=== PATIENT | female | born 1965 | race Caucasian/White ===

== ENCOUNTER 2017-11-19 12:35 | Emergency (ER) | payer OTHER ==
[2017-11-19 13:30] LABS: Appearance,Urine Clear (Clear); Bilirubin,Urine Negative (Negative); Blood,Urine Negative (Negative); Color,Urine Colorless; Glucose,Urine (UA) Negative (Negative); Ketones,Urine Negative (Negative); Leukocyte Esterase,Urine Negative (Negative); Nitrite,Urine Negative (Negative); PH, Urine 6.5 (5.0-8.0); Protein,Urine Negative (Negative); Specific Gravity,Urine 1.004 (1.001-1.035); Urobilinogen,Urine <2.0 mg/dL (<2.0)
[2017-11-19 14:51] LABS: Basophils # (A) 0.1 k/uL (0-0.2); Basophils % (A) 1 %; Eosinophils # (A) 0.6 k/uL (0-0.7); Eosinophils % (A) 5 %; HCT 47.1 % (34.0-46.0); HGB 15.7 gm/dL (11.4-16.0); Lymphocytes # (A) 3.1 k/uL (1.0-4.8); Lymphocytes % (A) 26 %; MCH 28.8 pg (25.0-35.0); MCHC 33.4 g/dL (31.0-37.0); MCV 86.4 fL (80.0-100.0); Mean Platelet Volume 6.9; Monocytes # (A) 0.5 k/uL (0-1.0); Monocytes % (A) 4 %; Neutrophils # (A) 7.2 k/uL (1.3-7.7); Neutrophils % (A) 63 %; Platelet Count 381 k/uL (150-450); RBC 5.45 m/uL (3.80-5.40); WBC 11.6 k/uL (3.8-10.6)
[2017-11-19 15:02] LABS: ALT 26 U/L (9-52); AST 24 U/L (14-36); Albumin 4.3 g/dL (3.5-5.0); Alkaline Phosphatase 100 U/L (38-126); Amylase 62 U/L (30-110); Anion Gap 11 mmol/L; Blood Urea Nitrogen 15 mg/dL (7-17); Calcium 9.9 mg/dL (8.4-10.2); Carbon Dioxide 27 mmol/L (22-30); Chloride 104 mmol/L (98-107); Glucose 94 mg/dL (74-99); Lipase 91 U/L (23-300); Potassium 4.3 mmol/L (3.5-5.1); Sodium 142 mmol/L (137-145); Total Bilirubin 1.1 mg/dL (0.2-1.3); Total Protein 7.3 g/dL (6.3-8.2)
--- NOTE | 2017-11-19 15:10 | XR ---
EXAMINATION TYPE: XR KUB DATE OF EXAM: 11/19/2017 3:01 PM CLINICAL HISTORY: Right lower quadrant and right flank pain. TECHNIQUE: Two Upright KUB images of the abdomen are obtained. COMPARISON: Acute abdominal series April 22, 2009. FINDINGS: Scattered gas is seen in non-distended stomach and small bowel loops. Gas and fecal materia l is seen in non-distended colon. Cholecystectomy clips are present. Visualized lung bases are clear. Visualized osseous structures are intact. IMPRESSION: Overall nonobstructive bowel gas pattern.
[2017-11-19] MEDS ORDERED: RX INFO: IV CONTRAST WAS GIVEN 1 EACH MISC MISCELLANE PRN (15:58)
[2017-11-19] MEDS ORDERED: KETOROLAC 30 MG/ML 1 ML VIAL IVP STA (15:58)
[2017-11-19] MEDS ORDERED: ONDANSETRON 4 MG/2 ML VIAL IVP STA (15:58)
[2017-11-19] MEDS ORDERED: SODIUM CHLORIDE 0.9% 500 ML IV STA (15:58)
[2017-11-19] MEDS ORDERED: ACETAMINOPHEN IV (For NPO) 1,000 MG in EMPTY BAG 1 BAG IVPB STA (15:58)
--- NOTE | 2017-11-19 16:31 | ED ---
General Adult HPI - General Chief complaint: Abdominal Pain Stated complaint: Abd pain Time Seen by Provider: 11/19/17 15:17 Source: patient Mode of arrival: ambulatory Limitations: no limitations - Related Data Home Medications Medication Instructions Recorded Confirmed Ibuprofen [Motrin] 800 mg PO TID PRN 11/19/17 11/19/17 Lisinopril-Hctz 10-12.5 mg 1 tab PO DAILY 11/19/17 11/19/17 [Zestoretic 10-12.5] Meclizine HCl 12.5 mg PO DAILY PRN 11/19/17 11/19/17 Simvastatin [Zocor] 20 mg PO HS 11/19/17 11/19/17 Allergies Allergy/AdvReac Type Severity Reaction Status Date / Time amoxicillin Allergy Rash/Hives Verified 11/19/17 15:37 Penicillins Allergy Rash/Hives Verified 11/19/17 15:37 atorvastatin [From Lipitor] AdvReac NUMBNESS Verified 11/19/17 15:37 Review of Systems ROS Statement: Those systems with pertinent positive or pertinent negative responses have been documented in the HPI. ROS Other: All systems not noted in ROS Statement are negative. Past Medical History Past Medical History: Hyperlipidemia, Hypertension Additional Past Medical History / Comment(s): vertigo History of Any Multi-Drug Resistant Organisms: C-DIFF Date of last positivie culture/infection: c-diff 2012 Past Surgical History: Cholecystectomy Past Psychological History: No Psychological Hx Reported Smoking Status: Never smoker Past Alcohol Use History: Occasional Past Drug Use History: None Reported General Exam Limitations: no limitations General appearance: alert, in no apparent distress Head exam: Present: atraumatic, normocephalic, normal inspection Eye exam: Present: normal appearance, PERRL, EOMI. Absent: scleral icterus, conjunctival injection, periorbital swelling ENT exam: Present: normal exam, mucous membranes moist Neck exam: Present: normal inspection. Absent: tenderness, meningismus, lymphadenopathy Respiratory exam: Present: normal lung sounds bilaterally. Absent: respiratory distress, wheezes, rales, rhonchi, stridor Cardiovascular Exam: Present: regular rate, normal rhythm, normal heart sounds. Absent: systolic murmur, diastolic murmur, rubs, gallop, clicks GI/Abdominal exam: Present: soft, normal bowel sounds. Absent: distended, tenderness, guarding, rebound, rigid Extremities exam: Present: normal inspection, full ROM, normal capillary refill. Absent: tenderness, pedal edema, joint swelling, calf tenderness Back exam: Present: normal inspection Neurological exam: Present: alert, oriented X3, CN II-XII intact Psychiatric exam: Present: normal affect, normal mood Skin exam: Present: warm, dry, intact, normal color. Absent: rash Course Vital Signs 11/19/17 11/19/17 12:46 15:59 Temperature 97.4 F L Pulse Rate 91 97 Respiratory 18 18 Rate Blood Pressure 175/103 163/94 O2 Sat by Pulse 99 98 Oximetry Medical Decision Making - Lab Data Result diagrams: 11/19/17 14:43 11/19/17 14:43 Lab Results 11/19/17 11/19/17 11/19/17 Range/Units 13:00 14:43 14:43 WBC 11.6 H (3.8-10.6) k/uL RBC 5.45 H (3.80-5.40) m/uL Hgb 15.7 (11.4-16.0) gm/dL Hct 47.1 H (34.0-46.0) % MCV 86.4 (80.0-100.0) fL MCH 28.8 (25.0-35.0) pg MCHC 33.4 (31.0-37.0) g/dL RDW 13.0 (11.5-15.5) % Plt Count 381 (150-450) k/uL Neutrophils % 63 % Lymphocytes % 26 % Monocytes % 4 % Eosinophils % 5 % Basophils % 1 % Neutrophils # 7.2 (1.3-7.7) k/uL Lymphocytes # 3.1 (1.0-4.8) k/uL Monocytes # 0.5 (0-1.0) k/uL Eosinophils # 0.6 (0-0.7) k/uL Basophils # 0.1 (0-0.2) k/uL Sodium 142 (137-145) mmol/L Potassium 4.3 (3.5-5.1) mmol/L Chloride 104 (98-107) mmol/L Carbon Dioxide 27 (22-30) mmol/L Anion Gap 11 mmol/L BUN 15 (7-17) mg/dL Creatinine 0.60 (0.52-1.04) mg/dL Est GFR (CKD-EPI)AfAm >90 (>60 ml/min/1.73 sqM) Est GFR (CKD-EPI)NonAf >90 (>60 ml/min/1.73 sqM) Glucose 94 (74-99) mg/dL Calcium 9.9 (8.4-10.2) mg/dL Total Bilirubin 1.1 (0.2-1.3) mg/dL AST 24 (14-36) U/L ALT 26 (9-52) U/L Alkaline Phosphatase 100 (38-126) U/L Total Protein 7.3 (6.3-8.2) g/dL Albumin 4.3 (3.5-5.0) g/dL Amylase 62 (30-110) U/L Lipase 91 (23-300) U/L Urine Color Colorless Urine Appearance Clear (Clear) Urine pH 6.5 (5.0-8.0) Ur Specific [place] 1.004 (1.001-1.035) Urine Protein Negative (Negative) Urine Glucose (UA) Negative (Negative) Urine Ketones Negative (Negative) Urine Blood Negative (Negative) Urine Nitrite Negative (Negative) Urine Bilirubin Negative (Negative) Urine Urobilinogen <2.0 (<2.0) mg/dL Ur Leukocyte Esterase Negative (Negative) Disposition Clinical Impression: Abdominal pain Disposition: HOME SELF-CARE Condition: Good Instructions: Abdominal Pain (ED) Referrals: Jaspal Benoit MD [Primary Care Provider] - 1-2 days
--- NOTE | 2017-11-19 17:10 | CT ---
EXAMINATION TYPE: CT abdomen pelvis w con DATE OF EXAM: 11/19/2017 HISTORY: Right lower quadrant pain for [address] DLP: 1559.3mGycm Automated Exposure Control for Dose Reduction was Utilized. CONTRAST: CT scan of the abdomen and pelvis is performed without oral but with IV Contrast, patient injected wi th 100 mL of Isovue 300. COMPARISON: None. FINDINGS: LUNG BASES: No significant abnormality is appreciated. LIVER/GB: Cholecystectomy clips are noted. PANCREAS: No significant abnormality is seen. SPLEEN: No significant abnormality is seen. ADRENALS: No significant abnormality is seen. KIDNEYS: There is symmetric corticomedullary uptake and excretion from both kidneys without evidence of concerning solid or cystic renal mass or hydronephrosis bilaterally. Bladder is unremarkable in pe lvis. Scattered pelvic phleboliths are seen. BOWEL: Normal-appearing appendix is seen from cecum. There is no suspicious small or large bowel dila tation UTERUS/ADNEXA: Uterus is anteverted in shape. There is lobulation suggesting underlying fibroids. Thi s can be confirmed with pelvic ultrasound if desired. LYMPH NODES: No greater than 1cm abdominal or pelvic lymph nodes are appreciated. OSSEOUS STRUCTURES: There is moderate to advanced disc space narrowing and vacuum disc phenomenon L5- S1 level. OTHER: There is a small fat-containing umbilical hernia. IMPRESSION: No bowel obstruction is seen. No CT evidence for acute appendicitis. No significant acute finding is seen to account for patient's clinical symptoms.
[2017-11-19 17:48] VITALS: BP 208/108; PULSE 96; RESP 20; TEMP 97.8
== END 2017-11-19 17:41 | disposition home or self-care (01) ==
LOC: EC 12:35
DX: R10.31 Right lower quadrant pain (principal); I10 Essential (primary) hypertension; E78.5 Hyperlipidemia, unspecified; Z90.49 Acquired absence of other specified parts of digestive tract; Z79.899 Other long term (current) drug therapy; Z88.0 Allergy status to penicillin; Z88.8 Allergy status to other drugs, medicaments and biological substances
CPT/HCPCS: 36415; 80053; 82150; 83690; 85025; 81003; 74018; 74177; 99284; 96365; 96375 ×2; J2405; J1885; J0131; Q9967

== ENCOUNTER → 2017-12-01 | Outpatient (CLI) | payer OTHER ==
--- NOTE | 2017-12-01 07:37 | US ---
EXAMINATION TYPE: US abdomen complete DATE OF EXAM: 12/01/2017 COMPARISON: CT 2017 CLINICAL HISTORY: R10.9 Unspecified Abdominal Pain. RT SIDED PAIN AND EPIGASTRIC PAIN, hx cholecystec sebas years ago large body habitus EXAM MEASUREMENTS: Liver Length: 16.2 cm Gallbladder Wall: Surgically absent cm CBD: 0.2 cm Spleen: 9.3 cm Right Kidney: 9.5 x 3.7 x 3.7 cm Left Kidney: 9.8 x 4.3 x 4.5 cm Pancreas: portions seen wnl , overlying bowel gas Liver: fatty liver Gallbladder: Surgically absent Evidence for sonographic Allison's sign: surgically absent CBD: wnl Spleen: wnl Right Kidney: wnl Left Kidney: wnl Upper IVC: wnl Abd Aorta: wnl The liver is homogenous. The intrahepatic portion of the IVC and proximal abdominal aorta are within normal limits. Common bile duct is unremarkable. The visualized portions of the pancreas are homog enous. The spleen is unremarkable. Kidneys are symmetric and free of hydronephrosis. No renal lesi ons are seen. IMPRESSION: No significant abnormality.
== END | disposition home or self-care (01) ==
LOC: RADUSWWP 06:52
PROVIDERS: ATTEND Family Medicine
DX: R10.9 Unspecified abdominal pain (principal)
CPT/HCPCS: 76700

== ENCOUNTER → 2019-11-29 | Outpatient (CLI) | payer OTHER ==
[2019-11-29 09:11] LABS: HCT 45.3 % (34.0-46.0); HGB 14.9 gm/dL (11.4-16.0); MCH 29.7 pg (25.0-35.0); MCHC 32.9 g/dL (31.0-37.0); MCV 90.4 fL (80.0-100.0); Mean Platelet Volume 7.4; Platelet Count 316 k/uL (150-450); RBC 5.01 m/uL (3.80-5.40); RDW 13.1 % (11.5-15.5); WBC 7.4 k/uL (3.8-10.6)
[2019-11-29 09:19] LABS: African American GFR (CKD) >90 (>60 ml/min/1.73 sqM); Anion Gap 4 mmol/L; Blood Urea Nitrogen 13 mg/dL (7-17); Carbon Dioxide 32 mmol/L (22-30); Chloride 102 mmol/L (98-107); Non-African American GFR(CKD) >90 (>60 ml/min/1.73 sqM); Potassium 4.2 mmol/L (3.5-5.1); Sodium 138 mmol/L (137-145)
== END | disposition home or self-care (01) ==
LOC: LABPAT 08:47
PROVIDERS: ATTEND Internal Medicine Cardiovascular Disease
DX: Z01.818 Encounter for other preprocedural examination (principal); R07.2 Precordial pain
CPT/HCPCS: 36415; 80051; 82565; 84520; 85027

== ENCOUNTER 2019-12-04 06:02 | Day surgery (SDC) | payer OTHER ==
[2019-11-30 11:08] VITALS: BMI 34.9
[~2019-12-04 06:02] MED LIST: ALPRAZolam 0.25 MG TAB PO PRN; ALPRAZolam 0.5 MG TAB PO PRN; ASPIRIN 325 MG TAB PO STA; NITROGLYCERIN SL TABS 0.4 MG TAB SUBLINGUAL PRN; SODIUM CHLORIDE 0.9% 1,000 ML in EMPTY BAG 1 BAG IV ONE
[2019-12-04 06:29] VITALS: RESP 16; TEMP 98.2
[2019-12-04] MEDS ORDERED: LIDOCAINE 1% INJ 10MG/ML (20 ML MDV) ONE (07:25)
[2019-12-04] MEDS ORDERED: fentaNYL (PF) 50 MCG/ML 2 ML AMP ONE (07:35)
[2019-12-04] MEDS: MIDAZOLAM 2 MG/2 ML VIAL IV ONE ×2 (07:42→07:47)
[2019-12-04] MEDS ORDERED: fentaNYL (PF) 50 MCG/ML 2 ML AMP IV ONE (07:42)
[2019-12-04] MEDS ORDERED: LIDOCAINE 1% INJ 10MG/ML (20 ML MDV) SQ ONE (07:44)
[2019-12-04] MEDS ORDERED: IOPAMIDOL-370 125ML BTL INJ ONE (07:56)
[2019-12-04] MEDS ORDERED: RX INFO: IV CONTRAST WAS GIVEN 1 EACH MISC MISCELLANE PRN (08:10)
--- NOTE | 2019-12-04 10:29 | CC ---
CARDIAC CATHETERIZATION REPORT INDICATION: Chest pain with abnormal stress test. PROCEDURE NOTE: After obtaining informed consent, left heart catheterization and coronary angiogram were performed via the right femoral artery using standard Cuca catheters. The patient tolerated the procedure well without any obvious immediate complications. A femoral angiogram was performed and Angio-Seal was deployed for hemostasis. Patient received moderate conscious sedation. Total sedation time was 14 minutes. FINDINGS: HEMODYNAMICS: Left ventricular end-diastolic pressure is 8 to 12 mm. There is no significant gradient across the aortic valve. LEFT VENTRICULOGRAM: Left ventriculogram is not performed. ANGIOGRAPHIC DATA LEFT MAIN CORONARY ARTERY: Left main coronary artery is a normal-sized vessel and is free of stenosis. Divides into left anterior descending coronary artery and circumflex coronary artery. LAD shows a mild atherosclerotic plaque in its proximal portion, but there are no focal hemodynamically significant lesion. Circumflex coronary artery is a large dominant vessel and is free of significant disease. Right coronary artery is free of significant obstructive disease. CONCLUSION: Mild nonobstructive coronary artery disease involving the proximal LAD. PLAN: I reviewed angiographic data with the patient and told her that her stress test is probably a false positive stress test and her management is going to be in the form of risk factor modification and optimal medical therapy. The patient had a femoral angiogram and Angio-Seal was deployed for hemostasis. MMODL / IJN: [id number] /
[2019-12-04 10:44] VITALS: BP 118/80; PULSE 76
== END 2019-12-04 12:32 | disposition home or self-care (01) ==
LOC: CATHCVL 06:02
PROVIDERS: ATTEND Internal Medicine Cardiovascular Disease
DX: I25.10 Atherosclerotic heart disease of native coronary artery without angina pectoris (principal); I10 Essential (primary) hypertension; E78.5 Hyperlipidemia, unspecified; Z79.82 Long term (current) use of aspirin; Z79.899 Other long term (current) drug therapy; Z87.891 Personal history of nicotine dependence
CPT/HCPCS: 93458; C1769 ×2; C1760; C1894; J2250; J2001; J3010; Q9967